=== PATIENT | female | born 1985 | race Caucasian/White ===

== ENCOUNTER → 2022-09-29 13:23 | Outpatient (CLI) | payer OTHER, SELFPAY ==
[2022-09-29 13:56] LABS: Alanine Aminotransferase 21 U/L (12-78); Albumin Level 4.5 g/dl (3.5-5.0); Albumin/Globulin Ratio 1.5 (1.1-1.8); Alkaline Phosphatase 74 U/L (38-126); Aspartate Amino Transferase 27 U/L (14-36); Basophils % 0.6 % (0.1-2.0); Bilirubin,Total 0.7 mg/dl (0.2-1.3); Blood Urea Nitrogen 7 mg/dl (7-17); Calcium 8.9 mg/dl (8.4-10.2); Carbon Dioxide 25 mmol/L (22.0-30.0); Chloride 104 mmol/L (98-107); Chol/HDL Ratio 6.9 (1-3.5); Cholesterol 214 mg/dl (140-200); Eosinophils # 0.3 K/mm3 (0.0-0.4); Eosinophils % 3.5 % (0.1-12.0); Estimated Glomerular Filt Rate 141 ml/min (>60); GFR (African American) 171 ML/MIN (>60); Glucose 87 mg/dl (74-100); HDL Cholesterol 31 mg/dl (40-60); Hematocrit 40.9 % (37.0-47.0); Hemoglobin 13.7 g/dL (12.2-16.2); Lymphocytes # 1.5 K/mm3 (0.7-4.5); Lymphocytes % 19.5 % (10-50); Mean Corpuscular HGB Conc 33.4 g/dL (31.8-35.4); Mean Corpuscular Hemoglobin 27.6 pg (27.0-31.2); Mean Corpuscular Volume 82.5 fl (81-99); Mean Platelet Volume 8.1 fl (7.4-10.4); Monocytes # 0.4 K/mm3 (0.1-1.0); Monocytes % 5.4 % (1.7-9.3); Neutrophils # 5.6 K/mm3 (1.8-7.8); Platelet Count 271 K/mm3 (142-424); Red Blood Count 4.95 M/mm3 (4.20-5.40); Red Cell Distribution Width 14.8 % (11.5-17.5); Sodium 134 mmol/L (136-145); Total Protein,Serum 7.5 g/dl (6.3-8.2); White Blood Count 7.8 K/mm3 (4.8-10.8)
[2022-09-29 14:05] LABS: Triglycerides 639 mg/dl (30-150)
[2022-09-29 14:07] LABS: Direct LDL Cholesterol 76.49 mg/dL (100-129)
[2022-09-29 14:13] LABS: Free T4 (Free Thyroxine) 1.15 ng/dl (0.78-2.19)
== END ==
PROVIDERS: PCP Emergency Medicine; Visit Provider Emergency Medicine
DX: R53.83 Other fatigue (principal)
CPT/HCPCS: 80053; 80061; 84439; 84443; 85025

== ENCOUNTER → 2023-06-09 08:30 | Outpatient (CLI) | payer OTHER, SELFPAY ==
[2023-06-09 19:43] LABS: Direct LDL Cholesterol 139.94 mg/dL (100-129)
[2023-06-09 20:12] LABS: Chol/HDL Ratio 8.4 (1-3.5); Cholesterol 211 mg/dl (140-200); HDL Cholesterol 25 mg/dl (40-60); Triglycerides 216 mg/dl (30-150); VLDL Cholesterol 43 mg/dL (0-40)
== END ==
PROVIDERS: PCP Internal Medicine; Visit Provider Internal Medicine
DX: E78.5 Hyperlipidemia, unspecified (principal)
CPT/HCPCS: 80061

== ENCOUNTER 2023-11-24 14:59 | Outpatient (CLI) | payer BC, SELFPAY ==
[2023-11-24 17:18] LABS: Amphetamine/Metha Screen,Urine Negative ng/ml (<1000); Benzodiazepines Screen,Urine Negative ng/ml (<200)
[2023-11-24 17:19] LABS: Barbiturates Screen,Urine Negative ng/ml (<200)
[2023-11-24 17:20] LABS: Cannabinoid Screen,Urine Negative ng/ml (<50); Cocaine Screen,Urine Negative ng/ml (<300)
[2023-11-24 17:21] LABS: Methadone Screen,Urine Negative ng/ml (<300)
[2023-11-24 17:22] LABS: Opiate Screen,Urine Negative ng/ml (<300); Phencyclidine Screen,Urine Negative ng/ml (<25)
== END 2023-11-24 23:59 | disposition home or self-care (01) ==
PROVIDERS: PCP Internal Medicine; Visit Provider Nurse Practitioner Psychiatric/Mental Health
DX: Z79.899 Other long term (current) drug therapy (principal)
CPT/HCPCS: 80307